=== PATIENT | female | born 1960 | race Caucasian/White ===

== ENCOUNTER 2017-06-28 12:45 | Emergency (ER) | payer SELFPAY ==
[~2017-06-28] VITALS: Ht 160 cm; Wt 65.7 kg
[2017-06-28] MEDS ORDERED: AUGMENTIN875 MG PO (15:59)
[2017-06-28] MEDS ORDERED: CIPRODEX OTIC7.5 ML RIGHT EAR (15:59)
[2017-06-28] MEDS ORDERED: PERCOCET 5/31 TABLET PO (15:59)
[2017-06-28 16:09] VITALS: BP 108/74
== END 2017-06-28 16:13 | disposition home or self-care (01) ==
LOC: EME 12:45
DX: H60.91 Unspecified otitis externa, right ear (principal); H61.21 Impacted cerumen, right ear; H66.91 Otitis media, unspecified, right ear; Z88.5 Allergy status to narcotic agent
CPT/HCPCS: 99281; 99284

== ENCOUNTER 2017-07-05 10:15 | Emergency (ER) | payer SELFPAY ==
[~2017-07-05] VITALS: Ht 160 cm; Wt 66.0 kg
[~2017-07-05 10:15] MED LIST: AUGMENTIN875 MG PO; CIPRODEX OTIC7.5 ML RIGHT EAR; PERCOCET 5/31 TABLET PO
[2017-07-05] MEDS ORDERED: PHENOBARBITAL60 MG PO ×2 (10:40→10:41)
[2017-07-05] MEDS ORDERED: DILANTIN100 MG PO (10:40)
[2017-07-05] MEDS ORDERED: ANTIVERT25 MG PO (13:04)
[2017-07-05] MEDS ORDERED: NAPROSYN500 MG PO (13:04)
[2017-07-05] MEDS ORDERED: PREDNISONE20 MG PO (13:04)
[2017-07-05 13:40] VITALS: BP 106/65
== END 2017-07-05 13:40 | disposition home or self-care (01) ==
LOC: EME 10:15
DX: R42 Dizziness and giddiness (principal); H60.91 Unspecified otitis externa, right ear; H61.23 Impacted cerumen, bilateral; R11.0 Nausea; R53.83 Other fatigue
CPT/HCPCS: 70450; 99281; 99284

== ENCOUNTER 2017-11-20 15:27 | Emergency (ER) | payer SELFPAY ==
[~2017-11-20] VITALS: Ht 160 cm; Wt 62.0 kg
[~2017-11-20 15:27] MED LIST changes: +ANTIVERT25 MG PO; +DILANTIN100 MG PO; +NAPROSYN500 MG PO; +PHENOBARBITAL60 MG PO; +PREDNISONE20 MG PO
[2017-11-20 16:51] LABS: HEMOGLOBIN 13.2 G/DL (11.9-15.5); MCV 96.9 FL (83-99); PLATELET COUNT 247 K/uL (156-360); RBC DIS.WIDTH-CV 13.2 % (11.8-14.6); RBC DIS.WIDTH-SD 47.5 % (39-53); RED BLOOD COUNT 4.13 M/uL (3.80-5.20); WHITE BLOOD COUNT 5.1 K/uL (4.1-10.2)
[2017-11-20 16:52] LABS: APPEARANCE CLEAR ((CLEAR)); BILIRUBIN NEGATIVE; BLOOD NEGATIVE; COLOR YELLOW ((YELLOW)); GLUCOSE (STRIP) NEGATIVE; KETONES 5; LEUKOCYTES SMALL; NITRITE NEGATIVE; PROTEIN (STRIP) NEGATIVE; SPECIFIC GRAVITY 1.024 (1.000-1.030); UROBILINOGEN 0.2 MG/DL (0.2-1.0)
[2017-11-20 16:59] LABS: ALBUMIN 4.3 g/dL (3.2-4.8)
[2017-11-20 17:00] LABS: CHLORIDE 105 mEq/L (99-109); POTASSIUM 3.7 mEq/L (3.7-5.4); SODIUM 141 mEq/L (136-147)
[2017-11-20 17:02] LABS: GLUCOSE 87 mg/dL (70-99)
[2017-11-20 17:04] LABS: TOTAL BILIRUBIN 0.2 mg/dL (0.0-1.0)
[2017-11-20 17:05] LABS: ALKALINE PHOSPHATASE 111 IU/L (3-129)
[2017-11-20 17:06] LABS: CREATININE 0.9 mg/dL (0.6-1.3); GFR ESTIMATE (CALCULATED) > 59 mL/min/
[2017-11-20 17:07] LABS: AST (GOT) 16 IU/L (2-34); UREA NITROGEN (BUN) 14 mg/dL (9-23)
[2017-11-20 17:07] LABS: BACTERIA NONE SEEN /HPF; EPITHELIAL CELLS 1+ /HPF; MUCUS 1+ /LPF; RED BLOOD CELLS 0-5 /HPF (0-5); UCUL ADDED? NO; WHITE BLOOD CELLS 0-5 /HPF (0-5)
[2017-11-20 17:09] LABS: ALT (GPT) 16 IU/L (3-49)
[2017-11-20] MEDS ORDERED: CIPRO500 MG PO (17:24)
[2017-11-20 17:51] VITALS: BP 117/63
== END 2017-11-20 17:56 | disposition home or self-care (01) ==
LOC: EME 15:27
PROVIDERS: Physician Assistant
DX: R14.0 Abdominal distension (gaseous) (principal); R30.0 Dysuria; R10.9 Unspecified abdominal pain; Z87.440 Personal history of urinary (tract) infections; G40.909 Epilepsy, unspecified, not intractable, without status epilepticus; F17.200 Nicotine dependence, unspecified, uncomplicated; Z88.5 Allergy status to narcotic agent
CPT/HCPCS: 74019; 80053; 81003; 85027; 87086; 99281; 99284

== ENCOUNTER 2018-01-04 12:07 | Emergency (ER) | payer SELFPAY ==
[~2018-01-04] VITALS: Ht 157.5 cm; Wt 61.2 kg
[~2018-01-04 12:07] MED LIST changes: +CIPRO500 MG PO
[2018-01-04 14:56] VITALS: BP 121/74
== END 2018-01-04 14:57 | disposition home or self-care (01) ==
LOC: EME 12:07
DX: S83.91XA Sprain of unspecified site of right knee, initial encounter (principal); W19.XXXA Unspecified fall, initial encounter; G40.909 Epilepsy, unspecified, not intractable, without status epilepticus; F17.200 Nicotine dependence, unspecified, uncomplicated
CPT/HCPCS: 73564; 99281; 99283

== ENCOUNTER 2018-01-14 09:34 | Emergency (ER) | payer SELFPAY ==
[~2018-01-14] VITALS: Ht 157.5 cm; Wt 61.9 kg
[2018-01-14 10:18] LABS: HEMOGLOBIN 12.9 G/DL (11.9-15.5); MCH 31.9 PG (29.0-34.0); MCHC 33.1 G/DL (30.0-36.0); MCV 96.3 FL (83-99); PLATELET COUNT 249 K/uL (156-360); RBC DIS.WIDTH-CV 13.2 % (11.8-14.6); RED BLOOD COUNT 4.05 M/uL (3.80-5.20); WHITE BLOOD COUNT 4.4 K/uL (4.1-10.2)
[2018-01-14 10:56] LABS: CHLORIDE 107 MEQ/L (99-109); CREATININE 0.8 MG/DL (0.6-1.3); GFR ESTIMATE (CALCULATED) > 59 mL/min/; GLUCOSE 86 mg/dL (70-99); POTASSIUM 4.1 MEQ/L (3.7-5.4); SODIUM 143 MEQ/L (136-147); UREA NITROGEN (BUN) 14 mg/dL (9-23)
[2018-01-14 10:57] LABS: TROP-I INTERPRETATION NEGATIVE; TROPONIN-I < 0.01 ng/mL (0.0-0.30)
[2018-01-14 12:36] LABS: TROP-I INTERPRETATION NEGATIVE; TROPONIN-I < 0.01 ng/mL (0.0-0.30)
[2018-01-14] MEDS ORDERED: XANAX0.5 MG PO (13:21)
[2018-01-14 13:26] VITALS: BP 126/61
== END 2018-01-14 13:28 | disposition home or self-care (01) ==
LOC: EME 09:34
PROVIDERS: Emergency Medicine
DX: R07.89 Other chest pain (principal); F41.9 Anxiety disorder, unspecified; G40.909 Epilepsy, unspecified, not intractable, without status epilepticus; Z72.0 Tobacco use; Z88.5 Allergy status to narcotic agent
CPT/HCPCS: 71046; 80048; 84484; 85027; 93005